=== PATIENT | female | born 1940 | race Caucasian/White ===

== ENCOUNTER 2018-12-03 07:31 | Inpatient (IN) | payer MEDICARE, OTHER, SELFPAY ==
[2018-11-20 08:54] VITALS: BMI 35.4
[2018-12-03] VITALS (18 sets, daily range): BP systolic 138–173; BP diastolic 69–119; PULSE 69–106; RESP 10–23; TEMP 36–37.3; O2SAT 91–98; BMI 35.4
--- NOTE | 2018-12-03 | DI.RAD.S_ITS ---
PROCEDURE: XR LUMBAR SPINE 2-3V INDICATIONS: L4-5 TLIF TECHNIQUE: 2 operative views of the lumbar spine were acquired. COMPARISON: None. FINDINGS: Operative images demonstrate posterior lateral natasha and pedicles are fixation at L4-L5 with interbody disc material placement. There is no radiographic evidence of complications. IMPRESSION: Operative imaging provided for lumbar fusion Dictated by: Robbie Buitrago M.D. on 12/03/2018 at 12:22 Approved by: Robbie Buitrago M.D. on 12/03/2018 at 12:23
[2018-12-03] MEDS: LACTATED RINGERS 1,000 ML 42 ML IV ×2 (07:00→12:35)
--- NOTE | 2018-12-03 08:45 | PM.PREOP ---
Pre-operative Note Interval Note History & Physical reviewed/Exam performed by Physician: Yes Changes to H&P: No
[2018-12-03] MEDS: CLINDAMYCIN 900 MG/50 ML PIGGYBACK 50 MG IV ×2 (09:34→18:06)
--- NOTE | 2018-12-03 10:09 | SUR.OPER ---
Prone on spine table, head in foam head support, padded chest and pelvic supports, gel pad at knees, lower legs supported by pillows; nipples, genitalia and toes free of pressure, arms secured on foam padded arm boards at <90 degrees abduction. Tape over blanket at thigh secured to table.
[2018-12-03] MEDS: BUPIVACAINE 0.25% W/ EPI 30 ML VIAL INJ (10:30)
[2018-12-03] MEDS: BUPIVACAINE LIPOSOME 266 MG/20 ML VIAL INJ (10:30)
--- NOTE | 2018-12-03 12:32 | P.OP_ITS ---
Operative Date/Time/Diagnoses Date of procedure: 12/03/18 Time of procedure: 09:32 Pre-op diagnosis: 1. L4-5 spondylolisthesis 2. L4-5 spinal stenosis 3. L5-S1 spinal stenosis Post-op diagnosis: same Procedure & Clinicians Procedure: 1. L4-5 Postero-lateral and posterior interbody fusion 2. L4-5 interbody cage placement. 3. L4-5 decompressive laminectomy with bilateral facetecomies 4. L4-5 Posterior non-segmental instrumentation 5. L5-S1 hemilaminnectomy 6. [place] of bone marrow from iliac crest 7. Utilization of microsurgical technique and operating microscope Same procedure as scheduled: Yes Indications: Patient has been having chronic back pain and worsening lumbar radiculopathy. Patient failed multiple conservative management with worsening pain weakness and numbness in her lower extremity. Patient has been having difficulty performing activity of daily living. After discussing risks benefits of treatment options, patient elected proceed with surgery. Surgeon: Liana Caballero Adhesive Sprayer: Colleen Degroot Click Yes if Unassisted: No Anesthesia Type: General Operative Notes Closure Type: primary Specimen(s): none sent Prosthetic devices, grafts, tissues, transplants, or devices: GLobus revolve, Rise cages Applied: catheter Estimated Blood Loss (mL): 50 Blood products transfused: none Procedure in detail: Patient was seen in the preoperative area. Risks and benefits of the surgery was discussed with the patient. Informed consent was obtained from the patient and placed in the chart. Surgical site was marked. Patient was taken to the operative room. General anesthesia was administered. Prophylactic antibiotic was given to the patient less than 30 min before the incision was made. Patient was placed into a prone position on the Augusto table. Patient's back was then prepped and draped in the sterile fashion. Time- out was performed at this time. Using AP and lateral C-arm imaging the interval between L4-5 L5-S1 was identified and marked on patient's back. A 2 inch incision 2 in from midline was made on the right side first. The fascia was incised in line with skin incision. Globus MARS retractors was placed inside the incision and docked onto the L4 lamina. Using microsurgical technique and operating microscope, a L4 laminectomy and L4-5 facetectomy was performed using a Kerrison rongeur. The disc space at L4-5 was identified. And a total diskectomy was performed at L4-5 level. The endplates were decorticated using a rasp and shaver. The total diskectomy and decortication was performed at L4-5 level in order to to accomplish a L4-5 fusion. The local bone from the laminectomy and facetectomy was saved for local bone grafting. After the total diskectomy and decortication was completed, Bio4 bone graft material was combined with local bone that was harvested earlier. At this time, a separate skin is incision was made over the iliac crest. A Jamshidi needle was inserted into the iliac crest through a separate skin incision. 5 cc of bone marrow aspiration was obtained through the separate skin incision using a Jamshidi needle from the iliac crest. The bone marrow aspiration was combined with local bone and the Bio4 bone grafting material. The bone grafting material was placed into the L4-5 interbody space along with a expandable cage. The cage was expanded to its maximum height using the torque limiting screwdriver. At this time the MARS retractor was redirected over the L5 lamina. Using microsurgical technique and operating microscope, a L5-S1 heminectomy was performed using the Kerrison rongeur. The ligamentum flavum was also resected at the side of the hemilaminectomy for further decompression of the epidural space. At this time a mirror image incision was made on the left side. The fascia was incised in line with the skin incision. Globus MARS retractor was inserted and docked onto the L4-5 posterolateral gutter. Using the power drill, posterior- lateral decortication was performed at L4-5 level until bleeding cortical bone was identified. The remaining bone grafting material was placed into the L4-5 posterior lateral gutter he order to accomplish posterolateral fusion at the L4- 5 level. Using the double C-arm technique, pedicle screws were placed into the L4 and L5 pedicles bilaterally. This was done by placing the Jamshidi needle into the pedicles, then placing the guidewires over the Jamshidi needle, and finally placing the cannulated screws over the guidewires bilaterally. After the pedicle screws were placed, 2 titanium rods was locked into the heads of the pedicle screws using locking caps and torque limiting screwdriver. After all the hardware was placed, and confirmed with AP and lateral C-arm imaging, the wound was then irrigated with sterile normal saline and packed with Ray-Helio gauze for 3 min to accomplish hemostasis. After the gauze was removed the deep fascia was closed with #1 Vicryl suture. The subcutaneous layer was closed with 2-0 Vicryl. The skin was closed with skin adama. Patient tolerated the procedure well. There were no complications. Complications: none Post-operative Condition: stable Disposition: PACU Plan for aftercare: Admit to inpatient hospital
[2018-12-03] MEDS: fentaNYL 100 MCG/2 ML INJ 50 MCG IV ×2 (12:39→12:44)
[2018-12-03] MEDS: LORazepam 2 MG/ML INJ 0.25 MG IV ×2 (12:42→13:07)
[2018-12-03] MEDS: HYDROMORPHONE 2 MG INJ 0.5 MG IV ×3 (12:49→13:37)
[2018-12-03] MEDS: hydrOXYzine pamoate 25 MG CAPSULE PO (13:12)
--- NOTE | 2018-12-03 13:51 | SUR.PHASEI ---
PACU Phase 1 note: at 1228 patient arrived to PACU awake, drowsy and tearful. Pain level 9/10 on arrival. Medicated per post op orders. Pain level stable at 7/10. Awake, calm and relaxed. Repositioned for comfort. Voided on bedpan. Tolerating PO without any nausea. VSS, O2 with 2L/[employer]. Stable for transfer to IP room. Bedside report will be given. Kade Del Valle
--- NOTE | 2018-12-03 14:59 | PC.NURSE ---
1430-Patient arrives from w/transporter driver, opens eyes spontaneous, CMS intact, peripheral pulses present, skin warm and dry. no drainage noted from surgical sites-dressing CDI. all belongings in patient's room.
[2018-12-03] MEDS: SODIUM CHLORIDE 0.9% 1,000 ML 100 ML IV (15:45)
[2018-12-03] MEDS: HYDROMORPHONE 1 MG INJ 0.5 MG IV (15:56)
[2018-12-03] MEDS: HYDROCODONE/ACET 5/325 TABLET 2 TAB PO ×2 (17:35→21:47)
[2018-12-03] MEDS: DOCUSATE 100 MG CAPSULE PO (21:47)
[2018-12-03] MEDS: PANTOPRAZOLE 40 MG TABLET PO (21:47)
[2018-12-03] MEDS: buPROPion 75 MG TABLET PO (22:04)
--- NOTE | 2018-12-03 23:26 | PC.NURSE ---
A&OX3. 98% 2L. desats to 88 at sleep. baseline R. facial droop. pain controlled with norco 2 tabs. pt rates her pain 09/24. not OOB. q2turn. 1pa bedpan. SCDs on. call light in reach. bed alarm active.
[2018-12-04 00:05] VITALS: BP 127/79; PULSE 91; RESP 16; TEMP 36.9; O2SAT 91
[2018-12-04] MEDS: SODIUM CHLORIDE 0.9% 1,000 ML 100 ML IV (00:27)
[2018-12-04] MEDS: HYDROCODONE/ACET 5/325 TABLET 2 TAB PO ×5 (02:29→20:30)
[2018-12-04] MEDS: CLINDAMYCIN 900 MG/50 ML PIGGYBACK 50 MG IV (02:30)
[2018-12-04 04:56] VITALS: BP 135/71; PULSE 83; RESP 16; TEMP 36.9; O2SAT 96
--- NOTE | 2018-12-04 05:11 | PC.NURSE ---
A&O x4. Pt not OOB overnight, using call light for bedpan, Good amount UOP. L hand PIV with NS @100c/hr, DC IVG if tolerating PO this morning. Sipping water at bedside. Denies nausea. Pt with hx of brain surgery on 2002, right side facial droop and right side hearing loss. Coversite dressing x2 to mid back, CD&I. Pt rates pain 2-5 overnight, PRN [place] given per order. Pt states numbness at pre surgery baseline in right leg that goes from inner ankle to knee, otherwise CMS intact. SCDs on.
[2018-12-04 06:31] LABS: Hematocrit 33.6 % (36-46); Hemoglobin 11.2 g/dL (12.0-16.0)
[2018-12-04 08:38] VITALS: BP 138/69; PULSE 76; RESP 17; TEMP 36.8; O2SAT 98
[2018-12-04] MEDS: DOCUSATE 100 MG CAPSULE PO ×2 (09:55→20:31)
[2018-12-04] MEDS: PANTOPRAZOLE 40 MG TABLET PO ×2 (09:55→20:31)
[2018-12-04] MEDS: hydroCHLOROthiazide 12.5 MG CAPSULE PO (09:55)
[2018-12-04] MEDS: LISINOPRIL 10 MG TABLET PO (09:55)
[2018-12-04] MEDS: buPROPion 75 MG TABLET PO ×2 (09:58→20:31)
[2018-12-04] MEDS: hydrOXYzine pamoate 25 MG CAPSULE PO ×2 (10:07→20:30)
--- NOTE | 2018-12-04 10:50 | P.PN_ITS ---
Subjective Subjective Date Patient Seen: 12/04/18 Time Patient Seen: 10:50 Interval history: Hospital day 2, postop day 1 following L4-5 TLIF, cage, posterior screw fixation; L5-S1 hemilaminectomy by Dr. Caballero. She is remained stable postoperatively. She has not been out of bed yet. No PT yet. Taking [place] 5/325 mg 2 tabs q.4h. Patient anticipated due to 3 night stay in the hospital. She does have some friends that will be with her at home. She does complain of pain to her left lower back. No radicular leg pain or numbness. Exam Vital Signs (past 8 hours): - 12/04/18 04:56 12/04/18 08:38 Temperature 98.5 F 98.2 F Pulse Rate 83 76 Respiratory Rate 16 17 Blood Pressure 135/71 138/69 Pulse Oximetry 96 98 Oxygen Delivery Method Nasal Cannula Oxygen Flow Rate 2 Narrative Exam Narrative: Alert, oriented with complaint of pain to her left lower back. Back. Dressing to lumbar area is dry without drainage or inflammation. Legs. No calf pain or swelling. Pulses symmetrical. Good sensation to both lower legs. Good strength on foot dorsiflexion plantar flexion bilateral. Objective Labs Result Diagrams: 12/04/18 06:05 Labs: Laboratory Results - last 24 hr 12/04/18 06:05 Hgb 11.2 L Hct 33.6 L Assessment & Plan Post-op Postoperative Procedures: Procedures Operation Date: 12/03/18 12:15 Actual Procedures Side Surgeon p L5-S1 hemilaminectomy, L4-5 TLIF w/ posterior instrumentaion Liana Caballero MD Plan: Patient will work with PT today. Observe for improvement in pain and function. Anticipate discharge home in the next 1-2 days if stable.
--- NOTE | 2018-12-04 10:55 | PT.IIE ---
Current Diagnoses Spondylolisthesis, lumbar region (12/03/18) Other spondylosis with radiculopathy, lumbosacral region (12/03/18) Spinal stenosis, lumbar region with neurogenic claudication (12/03/18) Surgery Performed Operation Date: 12/03/18 12:15 Actual Procedures p L5-S1 hemilaminectomy, L4-5 TLIF w/ posterior instrumentromi - Liana Caballero MD Surgical History (Last Updated 11/20/18 @ 12:11 by Jackie Sanders RN) History of colon resection (Acute) Hx of arthroscopy of right knee (Acute ~2004) Hx of bariatric surgery (Acute ~1995) Hx of cardiac cath (Acute ~2004) Hx of cholecystectomy (Acute) Hx of dilation and curettage (Acute) Hx of tonsillectomy (Acute) Medical History (Last Updated 11/20/18 @ 12:11 by Jackie Sanders RN) Acid reflux (Acute) Bilateral leg cramps (Acute) Bradycardia (Acute) Chest pain (Acute) Colon cancer (Acute) Depression (Acute) Former smoker (Acute) HTN (hypertension) (Acute) Imbalance (Acute) Insomnia (Acute) Migraines (Acute) Numbness and tingling of both legs (Acute) ERIN on CPAP (Acute) Osteoarthritis (Acute) Right acoustic neuroma (Acute) RLS (restless legs syndrome) (Acute) Sciatica (Acute) 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) (Acute ~2006) Physical Therapy Inpatient Evaluation/Re-Eval M1 PT/OT-IP Prior Functional Status Start: 12/04/18 13:20 Freq: NEEDED Status: Active Protocol: Document 12/04/18 10:55 AB (Rec: 12/04/18 13:40 AB [id number]) Medical Review Prior Functional Status Medical History Reviewed Yes Communication able to make needs known Mobility and Gait pt stated that she is modified independent with all mobilities and ambulation without AD but occasionally uses a 4WW depending on back pain Social History Household Members other Living Arrangements Apartment/Condo Number of Floors (Floors) One Floor Number of Stairs To Enter/Railing? no steps to enter Home Environment High Toilet,Walk in Shower, Built-In Shower Seat Home Equipment Front Wheel Walker,Four Wheel Walker,Grab Bars In Shower Additional Social History Comment has trekking poles pt stated that she also has a recliner that she usually take a nap on also stated that a friend will stay with her for 2-3 days to assist her. M2 PT-IP Current Condition Start: 12/04/18 13:20 Freq: NEEDED Status: Active Protocol: Document 12/04/18 10:55 AB (Rec: 12/04/18 13:40 AB [id number]) Physical Therapy Current Condition Current Condition Evaluation Date 12/04/18 Treatment Diagnosis s/p L4-5 fusion/lami, L5S1 hemilami; difficulty in walking Onset Date 12/03/18 Precautions Lumbar Precautions Log Roll,No Twisting,Limit Bending,Lifting Restriction of 10 lbs,Gait Belt above Incisional Area M3 PT-IP Subjective Start: 12/04/18 13:20 Freq: NEEDED Status: Active Protocol: Document 12/04/18 10:55 AB (Rec: 12/04/18 13:40 AB [id number]) Subjective Physical Therapy Visit Type Type Initial Evaluation Visit Start Time 10:55 Visit Stop Time 11:48 Total Visit Minutes 53 Number of SPINNING MULE OPERATOR Visits 0 Physical Therapy Visit Comments Patient Comments pt agreeable to do PT Therapy Pain Assessment Pain When Pain Assessed At Rest Pain Present Pain Present Pain Reported Location back Intensity 8 Scale Used Numeric (1 - 10) Pain Management Techniques Apply Cold,Timing of Activity with Medications M4 PT-IP Mobility and Gait Start: 12/04/18 13:20 Freq: NEEDED Status: Active Protocol: Document 12/04/18 10:55 AB (Rec: 12/04/18 13:40 AB [id number]) PT-Bed Mobility Assessment Rolling Type of Rolling Log Rolling Level of Assist Minimal Assistance Supine to Sit Supine to Sit Minimal Assistance,1 Person Assistance Sit to Supine Sit to Supine Minimal Assistance,1 Person Assistance PT-Transfer Assessment Sit to and From Stand Sit to and from Stand Minimal Assistance,1 Person Assistance,Use of Upper Extremities Equipment Transfer Assistive Device Gait Belt,Front Wheeled Walker Orthotic/Prosthetic Devices or Brace: No Transfers Transfer Destination Chair Transfer Technique pt ambulated using FWW Transfer Ability Level of Assist Minimal Assistance,1 Person Assistance,Use of Upper Extremities Comments Mobility Comments pt educated on back precautions and log roll bed mobility. pt requesting to use the toilet but has to urgently urinate and assisted with bed pain. pt completed log roll to the R min A and assisted with bed pain placement and hygiene care. completed supine to sit min A and cues. BP sitting on EOB: 129/67. pt was able to sit on EOB SBA. completed sit to stand min A and cues. ambulated in room ~ 10 ft min A using FWW. (+) body shaking and pt stated that she has that due to stress. pt completed chair to w/c transfer using FWW min A and cues. positioned pt on chair. call light and table placed within reach. BP sitting on w /c: 130/59. Gait Assessment Gait Gait Assistance Required: Minimum Assistance Distance (Feet) 10 Able to Maintain Weight Bearing Status Yes During Gait Assistive Devices Assistive Device Gait Belt,Front Wheeled Walker Orthotic/Prosthetic Devices or Brace: No Gait Deviations General Gait Pattern Antalgic,Decreased Stride Length,Decreased Feet Clearance,Step-to Gait Factors Limiting Gait Function Factors Limiting Gait Function Decreased Activity Tolerance, Decreased Sensation,Decreased Strength,Limited Range of Motion,Pain,Poor Balance,Poor Safety Awareness Comments Gait Comments pt presents with unsteady gait requiring min A for safety. PT-Balance Assessment Sitting Balance and Reactions Static Sitting Balance Ability Good Dynamic Sitting Balance Ability Good Standing Balance and Reactions Static Standing Balance Ability Fair Dynamic Standing Balance Ability Fair Device Used FWW M5 PT-IP Objective Assessments Start: 12/04/18 13:20 Freq: NEEDED Status: Active Protocol: Document 12/04/18 10:55 AB (Rec: 12/04/18 13:40 AB [id number]) Orientation Orientation/Cognition Level of Alertness Alert Orientation Name,Age,Place,Situation Language Function Ability Hard of Hearing Safety Awareness Decreased Safety Awareness Gross Range of Motion Lower Extremity ROM Assessment Within Functional Limits Strength Lower Extremity Strength Assessment Bilaterally Impaired Hip 3+/5 Knee 3+/5 Coordination Assessment Gross Coordination Gross Coordination WNL Sensation Assessment Sensation Gross Sensation Right LE Impaired,Left LE Impaired Light Touch Impaired Proprioception (Position) Impaired Sensation Description Numbness Comments Sensation Comments RLE stated ~ 75% sensation LLE ~ 85% sensation Muscle Tone Muscle Tone WNL Yes M6 PT-IP Treatment Start: 12/04/18 13:20 Freq: NEEDED Status: Active Protocol: Document 12/04/18 10:55 AB (Rec: 12/04/18 13:40 AB [id number]) Physical Therapy Treatment Education Education Provided Precautions,Weight Bearing Status,Post-Op Packet,Safety M7 PT-IP Assessment and Plan Start: 12/04/18 13:20 Freq: NEEDED Status: Active Protocol: Document 12/04/18 10:55 AB (Rec: 12/04/18 13:40 AB [id number]) PT Summary Assessment and Plan Potential Rehabilitation Potential Good Status of Condition at Evaluation Evolving Summary Impairments Pain,ROM,Strength,Balance, Coordination,Sensation,Tone, Cognition,Bed Mobility, Transfers,Gait,Activity Tolerance Assessment Summary pt requiring min A with mobility but presents with decrease activity tolerance affecting function. d/c plan depending on progress and will conduct caregiver training when appropriate. will continue assessing progress to determine safe d/c plan. Goals Bed Mobility Goal Independent Transfer Goal Independent,Front Wheeled Walker,Four Wheeled Walker Gait Goal Independent,Front Wheel Walker ,Four Wheel Walker Gait Distance 200 Days to Meet Goals 5 Frequency of Treatment Frequency Of Treatment Twice a Day Treatment Plan Physical Therapy Treatment Plan Bed Mobility Training,Transfer Training,Gait Training, Therapeutic Exercise,Balance Retraining,Post Op Education, Discharge Planning,Hot or Cold Pack,Neuromuscular Re-ed, Coordination Retraining,Manual Therapy Other Recommendations and Next Treatment ambulation Focus Recommendations To Nursing Amount of Assist Needed 1 Person Assist Discharge Recommendations PT Discharge Recommendations Home with Assistance,Home Health,SNF Rehab
--- NOTE | 2018-12-04 11:57 | PC.NURSE ---
Day Shift- PT has urinary urgency, voiding qs on bed valle with 1 person assist. Reposition in bed, pt favors turning to right side. Reports lower back pain 5-6/10, PRN Vistaril given at 1005 with good effect, pt ambulating with PT and stated she was not able to turn well to the left and after receiving Vistaril, she was able to exit the left side of the bed. PRN [place] given for 7/10 pain with ambulating with PT. Given at 1125. Now currently sitting up in wheelchair with wheels locked, no recliner chairs available at this time. Pt states it feels better to be sitting up like this. Call light with in reach. Lower back overlapping cover site dressings intact with small amount of sero-sang drainage. CMS+, pt states she has chronic numbness from her ankle to her knee, the right is greater than the left. Pain is more to the left than the right.
[2018-12-04 12:40] VITALS: BP 115/56; PULSE 75; RESP 18; TEMP 36.7; O2SAT 96
--- NOTE | 2018-12-04 13:48 | OT.IP.EVAL ---
Current Diagnoses Spondylolisthesis, lumbar region (12/03/18) Other spondylosis with radiculopathy, lumbosacral region (12/03/18) Spinal stenosis, lumbar region with neurogenic claudication (12/03/18) Surgery Performed Operation Date: 12/03/18 12:15 Actual Procedures p L5-S1 hemilaminectomy, L4-5 TLIF w/ posterior instrumentromi - Liana Caballero MD Past Medical History (Last Updated 11/20/18 @ 12:11 by Jackie Sanders RN) Acid reflux (Acute) Bilateral leg cramps (Acute) Bradycardia (Acute) Chest pain (Acute) Colon cancer (Acute) Depression (Acute) Former smoker (Acute) HTN (hypertension) (Acute) Imbalance (Acute) Insomnia (Acute) Migraines (Acute) Numbness and tingling of both legs (Acute) ERIN on CPAP (Acute) Osteoarthritis (Acute) Right acoustic neuroma (Acute) RLS (restless legs syndrome) (Acute) Sciatica (Acute) 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) (Acute ~2006) Surgical History (Last Updated 11/20/18 @ 12:11 by Jackie Sanders RN) History of colon resection (Acute) Hx of arthroscopy of right knee (Acute ~2004) Hx of bariatric surgery (Acute ~1995) Hx of cardiac cath (Acute ~2004) Hx of cholecystectomy (Acute) Hx of dilation and curettage (Acute) Hx of tonsillectomy (Acute) Occupational Therapy Inpatient Evaluation/Re-Eval M1 PT/OT-IP Prior Functional Status Start: 12/04/18 13:20 Freq: NEEDED Status: Active Protocol: Document 12/04/18 13:48 DUNIA (Rec: 12/04/18 14:17 DUNIA [id number]) Medical Review Prior Functional Status Medical History Reviewed Yes Diet/Fluid Consistency Regular Communication WNL Mobility and Gait Pt stated that she normally ambulates without AD but occasionally uses a 4WW if LBP increases. Activities of Daily Living and IADL's Pt states she is independent with all self care, IADLS including cooking, shopping, cleaning, managing medications and finances. Prior Functional Level (Other details) Pt has a cat and has arranged for friends who live in same apt complex to assist with cat care. Social History Household Members other Living Arrangements Apartment/Condo Number of Floors (Floors) One Floor Number of Stairs To Enter/Railing? no steps to enter Home Environment Standard Height Toilet,Walk in Shower,Built-In Shower Seat Home Equipment Front Wheel Walker,Four Wheel Walker,Long Handled Sponge, Lan Manager,Grab Bars In Shower Employment Status Retired Additional Social History Comment has Drug Response Dx Pt stated she has several friends who will stay with her for 2-3 days at a time to assist her as needed. M2 OT-IP Current Condition Start: 12/04/18 13:13 Freq: Status: Active Protocol: Document 12/04/18 13:48 PJM (Rec: 12/04/18 14:17 [facility] [id number]) Occupational Therapy Current Condition Current Condition Evaluation Date 12/04/18 Treatment Diagnosis decreased self care, mobility s/p L5-S-1 TLIF Post Operative Precautions Lumbar Precautions Log Roll,No Twisting,Limit Bending,Lifting Restriction of 10 lbs,Gait Belt above Incisional Area M3 OT- IP Subjective and Pain Start: 12/04/18 13:13 Freq: Status: Active Protocol: Document 12/04/18 13:48 PJM (Rec: 12/04/18 14:17 [facility] [id number]) OT- Subjective Occupational Therapy Visit Type Type Initial Evaluation Visit Start Time 13:15 Visit Stop Time 13:48 Total Visit Minutes 33 Occupational Therapy Visit Comments Patient Comments I bought a lot of groceries and easy to fix meals before surgery. Patient/Caregiver Goals to go home, have less back pain during daily activities OT Pain Assessment Pain When Pain Assessed After Treatment Pain Present Pain Present Pain Reported Location back Intensity 5 Scale Used Numeric (1 - 10) Description Aching,Acute Pain Behaviors Facial Grimacing,Guarding M4 OT- IP ADL's Start: 12/04/18 13:13 Freq: Status: Active Protocol: Document 12/04/18 13:48 PJM (Rec: 12/04/18 14:17 [facility] [id number]) OT [id number] General Evaluation Self-Feeding Ability Independent OT ADL-Grooming General Evaluation Grooming Ability Standby Assistance Areas Needing Assistance Retrieving/Set-up of Grooming Items,Combing/Brushing Hair, Face Washing Comments OT Grooming Comments after set up in bed or chair OT ADL-Oral Care General Eval Oral Care Ability Standby Assistance Areas of Assistance Retrieving/Set-Up of Items Devices Oral Care Devices Toothbrush Comments Oral Care Comments after set up in chair OT ADL-Dressing General Eval Upper Body Dressing Ability Standby Assistance Lower Body Dressing Ability Maximum Assistance Assistive Devices Dressing Assistive Devices Long Handled Shoe Horn,Lan Manager ,Sock Aid Comments OT Dressing Comments Began education re: adapted ADL techniques for lower body dressing with wafer slicer, sock aid and long shoe horn. Pt has wafer slicer. Long shoe horn and sock aid provided. OT ADL-Toileting General Evaluation Toileting Ability Standby Assistance Areas Needing Assistance Manage Clothing,Perform Perineal Hygiene Comments OT Toileting Comments pt states she has urinary incontinence OT ADL-Bathing Comments OT Bathing Comments to be assessed as mobility improves M5 OT- IP IADL's Start: 12/04/18 13:13 Freq: Status: Active Protocol: Document 12/04/18 13:48 PJChris (Rec: 12/04/18 14:17 [facility] [id number]) OT-Instrumental Activities of Daily Living Deficits IADL Deficits Identified Deficits Home Safety Awareness Awareness of Need for Assistance at Home Good Awareness Ability to Problem Solve Emergency Able to Problem Solve Situations Medication Management Medication Management No Deficits Identified Money Management Money Management No Deficits Identified Meal Preparation Meal Preparation Comments pt prepared meals ahead of time and friends will also assist with meals per pt Refractory Worker Refractory Worker Caregiver Provides Assist Refractory Worker Comments friends to assist PRN until pt able Driving Driving Caregiver Provides Assist Driving Comments friends to assist until pt able M6 OT- IP Functional Cognition Start: 12/04/18 13:13 Freq: Status: Active Protocol: Document 12/04/18 13:48 DUNIA (Rec: 12/04/18 14:17 [facility] [id number]) Cognitive Factors Limiting Selfcare Function Cognitive Ability Level of Alertness Alert Patient Orientation Name,Age,Birthday,Month,Date, Year,Day of Week,Place, Situation Attention Span Ability Capable of Focused Attention, Capable of Sustained Attention Ability to Follow Commands Able to Follow One Step Commands Memory Description No Deficits Noted Safety Awareness No Deficits Noted Cognitive Comments Cognitive Assessment Comments Cognition appears WFL. Pt verbalizes 3/3 lumbar precautions and asking appropriate questions about adapted ADL techniques. 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 M7 OT- IP Mobility and Balance Start: 12/04/18 13:13 Freq: Status: Active Protocol: Document 12/04/18 13:48 PJM (Rec: 12/04/18 14:17 PJM [id number]) OT-Transfer Assessment Comments Mobility Comments see P.T. notes, pt states she just got back to bed after lunch OT- Gait Assessment Comments Gait Ability Comments see P.T. notes OT- Balance Assessment Comments Other Balance Tests/Deviations/Treatment see P.T. notes : M8 OT- IP Objective Assessments Start: 12/04/18 13:13 Freq: Status: Active Protocol: Document 12/04/18 13:48 PJM (Rec: 12/04/18 14:17 PJM [id number]) OT Gross Range of Motion Upper Extremity Range of Motion Assessment Within Functional Limits OT Strength Upper Extremity Strength Assessment Within Functional Limits Hand Section Gang Worker Strength Hand Dominance Right OT- Coordination Assessment Comments Coordination Comments BUE WFL OT-Muscle Tone Assessment Muscle Tone WNL Yes OT Sensation Assessment Comments Summary Comments Pt denies deficits in BUE's Edema Edema Absent M9 OT- IP Assessment and Plan Start: 12/04/18 13:13 Freq: Status: Active Protocol: Document 12/04/18 13:48 PJM (Rec: 12/04/18 14:17 PJM [email or web address]) OT Summary Assessment and Plan Potential Rehabilitation Potential Good Analytic Complexity at Evaluation Low Summary OT Impairments Pain,Functional Mobility, Grooming,Dressing,Toileting, Bathing,Toilet Transfers, Shower Transfers Assessment Summary Low complexity OT assessment completed on this 78 yr old woman admitted for L5-S1 hemilami and L4-5 TLIF. Began education re: lumbar precautions, body mechanics, adapted ADL techniques, equipt options for lower body dressing, optimal chair selection. Pt currently has mild performance deficits in functional mobility, transfers , standing grooming, lower body dressing, bathing and toileting due to post op pain. Anticipate pt will improve and be able to return home with assist from multiple friends in her apt complex. Pt will benefit from OT services here to address the goals below. Goals Grooming Goal Independent Dressing Goal Independent,Long Handled Shoe Horn,Lan Manager,Sock Aid Toileting Goal Independent Bathing Goal Standby Assistance,Grab Bars, Hand Held Shower Sprayer Toilet Transfer Goal Independent Shower Transfer Goal Standby Assistance,Walk-in Shower,Shower Chair,Grab Bars OT-Other Goals Grooming to be done standing at sink with good body mechanics. Days to Meet Goals 2 Frequency of Treatment Frequency Of Treatment Once a Day Treatment Plan OT Treatment Plan ADL Training,Functional Mobility,Patient/Family Education,Discharge Planning Other Treatment Recommendations and Next grooming at sink, LB dressing, Treatment Focus shower prior to d/c Discharge Recommendations OT Discharge Recommendations Home with Assistance from friends, HH Home Equipment Needs none
--- NOTE | 2018-12-04 14:19 | PT.IPTN ---
Current Diagnoses Spondylolisthesis, lumbar region (12/03/18) Other spondylosis with radiculopathy, lumbosacral region (12/03/18) Spinal stenosis, lumbar region with neurogenic claudication (12/03/18) Surgery Performed Operation Date: 12/03/18 12:15 Actual Procedures p L5-S1 hemilaminectomy, L4-5 TLIF w/ posterior instrumentaihelio - Liana Caballero MD Physical Therapy Treatment Note M2 PT-IP Current Condition Start: 12/04/18 13:20 Freq: NEEDED Status: Active Protocol: Document 12/04/18 10:55 AB (Rec: 12/04/18 13:40 AB [id number]) Physical Therapy Current Condition Current Condition Evaluation Date 12/04/18 Treatment Diagnosis s/p L4-5 fusion/lami, L5S1 hemilami; difficulty in walking Onset Date 12/03/18 Precautions Lumbar Precautions Log Roll,No Twisting,Limit Bending,Lifting Restriction of 10 lbs,Gait Belt above Incisional Area M3 PT-IP Subjective Start: 12/04/18 13:20 Freq: NEEDED Status: Active Protocol: Document 12/04/18 14:09 GGD (Rec: 12/04/18 14:17 GGD [email or web address]) Subjective Physical Therapy Visit Type Type Treatment Note Visit Start Time 13:40 Visit Stop Time 14:05 Total Visit Minutes 25 Number of JEWELRY SALES Visits 1 Physical Therapy Visit Comments Patient Comments Pt would like to walk. Therapy Pain Assessment Pain When Pain Assessed At Rest Pain Present Pain Present Pain Reported Location back Intensity 6 Scale Used Numeric (1 - 10) Pain Management Techniques Apply Cold,Timing of Activity with Medications M4 PT-IP Mobility and Gait Start: 12/04/18 13:20 Freq: NEEDED Status: Active Protocol: Document 12/04/18 14:09 GGD (Rec: 12/04/18 14:17 GGD [email or web address]) PT-Bed Mobility Assessment Rolling Type of Rolling Log Rolling,Roll to Left Level of Assist Contact Guard Assistance Supine to Sit Supine to Sit Contact Guard Assistance,1 Person Assistance Sit to Supine Sit to Supine Minimal Assistance,1 Person Assistance Scooting Scooting to Edge of Bed Standby Assistance PT-Transfer Assessment Sit to and From Stand Sit to and from Stand Contact Guard Assistance,1 Person Assistance,Use of Upper Extremities Equipment Transfer Assistive Device Gait Belt,4 Wheeled Walker Orthotic/Prosthetic Devices or Brace: No Transfers Transfer Destination Toilet Transfer Ability Level of Assist Minimal Assistance,1 Person Assistance,Use of Upper Extremities Comments Mobility Comments supine <> sit x 2. Gait Assessment Gait Gait Assistance Required: Standby Assistance,Contact Guard Assist,1 Person Assist Distance (Feet) 225 Able to Maintain Weight Bearing Status Yes During Gait Assistive Devices Assistive Device Gait Belt,Front Wheeled Walker Orthotic/Prosthetic Devices or Brace: No Gait Deviations General Gait Pattern Antalgic,Decreased Stride Length,Decreased Feet Clearance,Step-to Gait Factors Limiting Gait Function Factors Limiting Gait Function Decreased Activity Tolerance, Decreased Sensation,Decreased Strength,Limited Range of Motion,Pain,Poor Balance,Poor Safety Awareness Comments Gait Comments Pt in bed with all needs and alarm on. M5 PT-IP Objective Assessments Start: 12/04/18 13:20 Freq: NEEDED Status: Active Protocol: Document 12/04/18 10:55 AB (Rec: 12/04/18 13:40 AB [id number]) Orientation Orientation/Cognition Level of Alertness Alert Orientation Name,Age,Place,Situation Language Function Ability Hard of Hearing Safety Awareness Decreased Safety Awareness Gross Range of Motion Lower Extremity ROM Assessment Within Functional Limits Strength Lower Extremity Strength Assessment Bilaterally Impaired Hip 3+/5 Knee 3+/5 Coordination Assessment Gross Coordination Gross Coordination WNL Sensation Assessment Sensation Gross Sensation Right LE Impaired,Left LE Impaired Light Touch Impaired Proprioception (Position) Impaired Sensation Description Numbness Comments Sensation Comments RLE stated ~ 75% sensation LLE ~ 85% sensation Muscle Tone Muscle Tone WNL Yes M6 PT-IP Treatment Start: 12/04/18 13:20 Freq: NEEDED Status: Active Protocol: Document 12/04/18 14:09 GGD (Rec: 12/04/18 14:17 GGD [email or web address]) Physical Therapy Treatment Education Education Provided Precautions,Safety M7 PT-IP Assessment and Plan Start: 12/04/18 13:20 Freq: NEEDED Status: Active Protocol: Document 12/04/18 14:09 GGD (Rec: 12/04/18 14:17 GGD [email or web address]) PT Summary Assessment and Plan Summary Assessment Summary Pt improving with mobility. She was able to progress her gait distance. She did need min A with sit to supine with LE. Pt will need to improve in bed mobility if D/C home. Frequency of Treatment Frequency Of Treatment Twice a Day Treatment Plan Physical Therapy Treatment Plan Bed Mobility Training,Transfer Training,Gait Training, Therapeutic Exercise,Balance Retraining,Post Op Education, Discharge Planning,Hot or Cold Pack,Neuromuscular Re-ed, Coordination Retraining,Manual Therapy Recommendations To Nursing Amount of Assist Needed 1 Person Assist Discharge Recommendations PT Discharge Recommendations Home with Assistance,SNF Rehab
[2018-12-04 15:40] VITALS: BP 150/73; PULSE 80; RESP 18; TEMP 36.8; O2SAT 95
--- NOTE | 2018-12-04 16:25 | CM.IDA ---
Discharge Planning/Care Management CM Discharge Assessment Start: 12/04/18 16:19 Freq: Status: Active Protocol: Document 12/04/18 16:19 RODRIGO (Rec: 12/04/18 16:25 RODRIGO [id number]) Discharge Planning Assessment Assigned Senior Cobol Developer ANGELO Dobbs DPOA/Assigned Designee Name Cordelia: [phone] Mattie: Contact Information Advance Directives? Yes Advance Directives on File No History Provided By Patient Prior Living Arrangements Apartment/Condo Household Members other Independent with ADL's Yes Is patient alert and oriented? Yes Barriers to Discharge Yes Comment POD#1 from spinal surgery w/ Dr Caballero. PT recommending home w/ assist vs SNF, pt plans to go home w / assist from a friend that is going to stay w/ her for a few days. Other supports available? Pt is mod. indp at baseline and uses a walker d/t back pain. Further assessment by this FERMENTATION ENGINEER Saturday. Transportation Arrangement Friend Additional Comment Further assessment of DC needs required Review Status In Process
[2018-12-04 19:40] VITALS: BP 136/57; PULSE 72; RESP 17; TEMP 37.6; O2SAT 97
[2018-12-04] MEDS: SODIUM CHLORIDE 0.9% FLUSH 10 ML IV (20:31)
[2018-12-05] VITALS (7 sets, daily range): BP systolic 104–142; BP diastolic 48–70; PULSE 63–90; RESP 16–20; TEMP 36.4–37; O2SAT 95–98
[2018-12-05] MEDS: hydrOXYzine pamoate 25 MG CAPSULE PO ×2 (00:40→20:20)
[2018-12-05] MEDS: SODIUM CHLORIDE 0.9% FLUSH 10 ML IV ×3 (00:40→22:39)
[2018-12-05] MEDS: HYDROCODONE/ACET 5/325 TABLET 2 TAB PO ×4 (00:41→20:20)
--- NOTE | 2018-12-05 06:54 | PC.NURSE ---
Pt reports pain at mid back of 5/10 at rest and 7/10 with activity, transfer to BSC. Admit [place] per order q4hrs. CMS intact. Coversite dressing x2 to mid back intact with no drainage. Denies nausea, passing gas. Hx brain surgery in 2002, right side face droop and hearing loss. Pt needs reinforcement as to what to expect post op and home care mobility. Left hand PIV flushes, no blood return. Foot SCDs on
--- NOTE | 2018-12-05 09:25 | PT.IPTN ---
Current Diagnoses Spondylolisthesis, lumbar region (12/03/18) Other spondylosis with radiculopathy, lumbosacral region (12/03/18) Spinal stenosis, lumbar region with neurogenic claudication (12/03/18) Arthrodesis status (12/03/18) Surgery Performed Operation Date: 12/03/18 12:15 Actual Procedures p L5-S1 hemilaminectomy, L4-5 TLIF w/ posterior instrumentaion - Liana Caballero MD Physical Therapy Treatment Note M2 PT-IP Current Condition Start: 12/04/18 13:20 Freq: NEEDED Status: Active Protocol: Document 12/04/18 10:55 AB (Rec: 12/04/18 13:40 AB [id number]) Physical Therapy Current Condition Current Condition Evaluation Date 12/04/18 Treatment Diagnosis s/p L4-5 fusion/lami, L5S1 hemilami; difficulty in walking Onset Date 12/03/18 Precautions Lumbar Precautions Log Roll,No Twisting,Limit Bending,Lifting Restriction of 10 lbs,Gait Belt above Incisional Area M3 PT-IP Subjective Start: 12/04/18 13:20 Freq: NEEDED Status: Active Protocol: Document 12/05/18 09:25 GGD (Rec: 12/05/18 11:51 GGD [id number]) Subjective Physical Therapy Visit Type Type Treatment Note Visit Start Time 09:00 Visit Stop Time 09:25 Total Visit Minutes 25 Number of LITHOGRAPHIC RETOUCHER APPRENTICE Visits 2 Physical Therapy Visit Comments Patient Comments Pt states she having pain and not sure she can take care of herself at home. Therapy Pain Assessment Pain When Pain Assessed At Rest Pain Present Pain Present Pain Reported Location back Intensity 7 Scale Used Numeric (1 - 10) M4 PT-IP Mobility and Gait Start: 12/04/18 13:20 Freq: NEEDED Status: Active Protocol: Document 12/05/18 09:25 GGD (Rec: 12/05/18 11:51 GGD [id number]) PT-Transfer Assessment Sit to and From Stand Sit to and from Stand Contact Guard Assistance,1 Person Assistance,Use of Upper Extremities Equipment Transfer Assistive Device Gait Belt,4 Wheeled Walker Orthotic/Prosthetic Devices or Brace: No Transfers Transfer Destination Chair,Toilet Transfer Ability Level of Assist Minimal Assistance,1 Person Assistance,Use of Upper Extremities Gait Assessment Gait Gait Assistance Required: Standby Assistance,Contact Guard Assist,1 Person Assist Distance (Feet) 100 Able to Maintain Weight Bearing Status Yes During Gait Assistive Devices Assistive Device Gait Belt,Front Wheeled Walker Orthotic/Prosthetic Devices or Brace: No Gait Deviations General Gait Pattern Antalgic,Decreased Stride Length,Decreased Feet Clearance,Step-to Gait Factors Limiting Gait Function Factors Limiting Gait Function Decreased Activity Tolerance, Decreased Sensation,Decreased Strength,Limited Range of Motion,Pain,Poor Balance,Poor Safety Awareness Comments Gait Comments Pt in Chair with all needs and alarm on. RN and MD informed of pt c/o calf pain. M5 PT-IP Objective Assessments Start: 12/04/18 13:20 Freq: NEEDED Status: Active Protocol: Document 12/04/18 10:55 AB (Rec: 12/04/18 13:40 AB [id number]) Orientation Orientation/Cognition Level of Alertness Alert Orientation Name,Age,Place,Situation Language Function Ability Hard of Hearing Safety Awareness Decreased Safety Awareness Gross Range of Motion Lower Extremity ROM Assessment Within Functional Limits Strength Lower Extremity Strength Assessment Bilaterally Impaired Hip 3+/5 Knee 3+/5 Coordination Assessment Gross Coordination Gross Coordination WNL Sensation Assessment Sensation Gross Sensation Right LE Impaired,Left LE Impaired Light Touch Impaired Proprioception (Position) Impaired Sensation Description Numbness Comments Sensation Comments RLE stated ~ 75% sensation LLE ~ 85% sensation Muscle Tone Muscle Tone WNL Yes M6 PT-IP Treatment Start: 12/04/18 13:20 Freq: NEEDED Status: Active Protocol: Document 12/05/18 09:25 GGD (Rec: 12/05/18 11:51 GGD [id number]) Physical Therapy Treatment Education Education Provided Precautions,Safety M7 PT-IP Assessment and Plan Start: 12/04/18 13:20 Freq: NEEDED Status: Active Protocol: Document 12/05/18 09:25 GGD (Rec: 12/05/18 11:51 GGD [id number]) PT Summary Assessment and Plan Summary Assessment Summary Pt had increase in C/O pain and decrease tolerance to mobility. Pt wasn't able to ambulate as far. She did need increase in time for mobility and cues. Pt would benefit from SNF rehab to improve functional mobility and living alone. Frequency of Treatment Frequency Of Treatment Twice a Day Recommendations To Nursing Amount of Assist Needed 1 Person Assist Discharge Recommendations PT Discharge Recommendations Home with Assistance,SNF Rehab
[2018-12-05] MEDS: buPROPion 75 MG TABLET PO ×2 (10:05→20:20)
[2018-12-05] MEDS: DOCUSATE 100 MG CAPSULE PO ×2 (10:05→20:20)
[2018-12-05] MEDS: LISINOPRIL 10 MG TABLET PO (10:06)
[2018-12-05] MEDS: hydroCHLOROthiazide 12.5 MG CAPSULE PO (10:06)
[2018-12-05] MEDS: PANTOPRAZOLE 40 MG TABLET PO ×2 (10:09→20:20)
--- NOTE | 2018-12-05 10:20 | P.PN_ITS ---
Subjective Subjective Date Patient Seen: 12/05/18 Time Patient Seen: 10:20 Interval history: POD 2 s/p TLIF with Dr. Caballero. Patient's pain has been well controlled with [place] and Vistaril. Her left calf is very tender today. No history of blood clots. Denies chest pain or shortness of breath. She does live alone and has had previous neurological issues that makes her at an increased risk of falling. She would like to discuss with care management about senior care facility versus home health services. Exam Vital Signs (past 8 hours): - 12/05/18 03:16 12/05/18 08:00 Temperature 97.6 F 97.9 F Pulse Rate 77 65 Respiratory Rate 16 17 Blood Pressure 127/64 114/63 Pulse Oximetry 98 96 Oxygen Delivery Method Room Air Oxygen Flow Rate 0 Narrative Exam Narrative: Patient is sitting in bedside chair in no acute distress. Patient is alert and oriented x3. Calves are soft, compressible, and tender on the left. She is able to actively dorsiflex plantar flex. Pulses are symmetrical. Objective Labs Result Diagrams: 12/04/18 06:05 Assessment & Plan Post-op Assessment and plan (1) S/P lumbar fusion: Postoperative Procedures: Procedures Operation Date: 12/03/18 12:15 Actual Procedures Side Surgeon p L5-S1 hemilaminectomy, L4-5 TLIF w/ posterior instrumentaion Liana Caballero MD Will get Doppler ultrasound of left leg today. Continue to mobilize with physical therapy today. No excessive bending, lifting, or twisting. Patient has had some increased pain throughout the day will order Dilaudid for severe breakthrough pain. Patient has been very slow to mobilize and may need senior care facility versus home health services possible discharge tomorrow.
--- NOTE | 2018-12-05 10:33 | OT.IP.TRT ---
Current Diagnoses Spondylolisthesis, lumbar region (12/03/18) Other spondylosis with radiculopathy, lumbosacral region (12/03/18) Spinal stenosis, lumbar region with neurogenic claudication (12/03/18) Arthrodesis status (12/03/18) Surgery Performed Operation Date: 12/03/18 12:15 Actual Procedures p L5-S1 hemilaminectomy, L4-5 TLIF w/ posterior instrumentaion - Liana Caballero MD Occupational Therapy Treatment Note M2 OT-IP Current Condition Start: 12/04/18 13:13 Freq: Status: Active Protocol: Document 12/04/18 13:48 PJM (Rec: 12/04/18 14:17 PJM [id number]) Occupational Therapy Current Condition Current Condition Evaluation Date 12/04/18 Treatment Diagnosis decreased self care, mobility s/p L5-S-1 TLIF Post Operative Precautions Lumbar Precautions Log Roll,No Twisting,Limit Bending,Lifting Restriction of 10 lbs,Gait Belt above Incisional Area M3 OT- IP Subjective and Pain Start: 12/04/18 13:13 Freq: Status: Active Protocol: Document 12/05/18 10:29 CCC (Rec: 12/05/18 10:32 CCC [id number]) OT- Subjective Occupational Therapy Visit Type Type Patient Unavailable Notes LINUX DEVELOPER noted left calf soreness and PA noted to have doppler ultrasound completed today, therefore hold OT treatment at this time.
--- NOTE | 2018-12-05 13:17 | DI.US.S_ITS ---
PROCEDURE: US PERIPH VENOUS LOW EXTREM LT INDICATIONS: LLE PAIN AND TENDERNESS TECHNIQUE: Real-time imaging, as well as color and pulse Doppler interrogation, were performed of the lower extremity deep veins from the inguinal ligament to the popliteal fossa. COMPARISON: None. FINDINGS: The common femoral, femoral and popliteal veins are normally compressible, and free of intraluminal thrombus. Color and pulse Doppler demonstrate normal phasic intraluminal flow. There is normal augmentation response to distal compression maneuver. IMPRESSION: Negative left lower extremity duplex ultrasound for DVT. Dictated by: Robbie Buitrago M.D. on 12/05/2018 at 15:26 Approved by: Robbie Buitrago M.D. on 12/05/2018 at 15:26
--- NOTE | 2018-12-05 15:57 | PT.IPTN ---
Current Diagnoses Spondylolisthesis, lumbar region (12/03/18) Other spondylosis with radiculopathy, lumbosacral region (12/03/18) Spinal stenosis, lumbar region with neurogenic claudication (12/03/18) Arthrodesis status (12/03/18) Surgery Performed Operation Date: 12/03/18 12:15 Actual Procedures p L5-S1 hemilaminectomy, L4-5 TLIF w/ posterior instrumentaion - Liana Caballero MD Physical Therapy Treatment Note M2 PT-IP Current Condition Start: 12/04/18 13:20 Freq: NEEDED Status: Active Protocol: Document 12/04/18 10:55 AB (Rec: 12/04/18 13:40 AB [id number]) Physical Therapy Current Condition Current Condition Evaluation Date 12/04/18 Treatment Diagnosis s/p L4-5 fusion/lami, L5S1 hemilami; difficulty in walking Onset Date 12/03/18 Precautions Lumbar Precautions Log Roll,No Twisting,Limit Bending,Lifting Restriction of 10 lbs,Gait Belt above Incisional Area M3 PT-IP Subjective Start: 12/04/18 13:20 Freq: NEEDED Status: Active Protocol: Document 12/05/18 15:52 GGD (Rec: 12/05/18 15:57 GGD [id number]) Subjective Physical Therapy Visit Type Type Treatment Note Visit Start Time 15:30 Visit Stop Time 15:50 Total Visit Minutes 20 Number of MUSIC HISTORIAN Visits 3 Physical Therapy Visit Comments Patient Comments Pt states she needs to use the bathroom. Therapy Pain Assessment Pain When Pain Assessed At Rest Pain Present Pain Present Pain Reported M4 PT-IP Mobility and Gait Start: 12/04/18 13:20 Freq: NEEDED Status: Active Protocol: Document 12/05/18 15:52 GGD (Rec: 12/05/18 15:57 GGD [id number]) PT-Bed Mobility Assessment Rolling Type of Rolling Log Rolling,Roll to Left Level of Assist Contact Guard Assistance Supine to Sit Supine to Sit Contact Guard Assistance,1 Person Assistance Sit to Supine Sit to Supine Minimal Assistance,1 Person Assistance Scooting Scooting to Edge of Bed Contact Guard Assistance PT-Transfer Assessment Sit to and From Stand Sit to and from Stand Contact Guard Assistance,1 Person Assistance,Use of Upper Extremities Equipment Transfer Assistive Device Gait Belt,Front Wheeled Walker Orthotic/Prosthetic Devices or Brace: No Transfers Transfer Destination Bed,Toilet Transfer Ability Level of Assist Minimal Assistance,1 Person Assistance,Use of Upper Extremities Gait Assessment Gait Gait Assistance Required: Standby Assistance,Contact Guard Assist,1 Person Assist Distance (Feet) 25 Able to Maintain Weight Bearing Status Yes During Gait Assistive Devices Assistive Device Gait Belt,Front Wheeled Walker Orthotic/Prosthetic Devices or Brace: No Gait Deviations General Gait Pattern Antalgic,Decreased Stride Length,Decreased Feet Clearance,Step-to Gait Factors Limiting Gait Function Factors Limiting Gait Function Decreased Activity Tolerance, Decreased Sensation,Decreased Strength,Limited Range of Motion,Pain,Poor Balance,Poor Safety Awareness Comments Gait Comments Pt in bed with all needs and alarm on. M5 PT-IP Objective Assessments Start: 12/04/18 13:20 Freq: NEEDED Status: Active Protocol: Document 12/04/18 10:55 AB (Rec: 12/04/18 13:40 AB [id number]) Orientation Orientation/Cognition Level of Alertness Alert Orientation Name,Age,Place,Situation Language Function Ability Hard of Hearing Safety Awareness Decreased Safety Awareness Gross Range of Motion Lower Extremity ROM Assessment Within Functional Limits Strength Lower Extremity Strength Assessment Bilaterally Impaired Hip 3+/5 Knee 3+/5 Coordination Assessment Gross Coordination Gross Coordination WNL Sensation Assessment Sensation Gross Sensation Right LE Impaired,Left LE Impaired Light Touch Impaired Proprioception (Position) Impaired Sensation Description Numbness Comments Sensation Comments RLE stated ~ 75% sensation LLE ~ 85% sensation Muscle Tone Muscle Tone WNL Yes M6 PT-IP Treatment Start: 12/04/18 13:20 Freq: NEEDED Status: Active Protocol: Document 12/05/18 09:25 GGD (Rec: 12/05/18 11:51 GGD [id number]) Physical Therapy Treatment Education Education Provided Precautions,Safety M7 PT-IP Assessment and Plan Start: 12/04/18 13:20 Freq: NEEDED Status: Active Protocol: Document 12/05/18 15:52 GGD (Rec: 12/05/18 15:57 GGD [id number]) PT Summary Assessment and Plan Summary Assessment Summary Pt progressing slowly. She needs min a with bed mobility. She is slow moving with all mobility. She need cues to keep UE on FWW. Frequency of Treatment Frequency Of Treatment Twice a Day Recommendations To Nursing Amount of Assist Needed 1 Person Assist Discharge Recommendations PT Discharge Recommendations Home with Assistance,SNF Rehab
--- NOTE | 2018-12-05 16:09 | CM.DPNOTE ---
Addendum entered by ANGEOL Ruiz 12/05/18 16:18: PASRR completed. Original Note: DCP Cont: Met w/pt this afternoon, reviewed DCP. Pt was hopeful she could return home but explains she doesn't think this is a safe plan. Therapy team recommending SNF. Pt asks this EDUCATIONAL/DEVELOPMENT ASSISTANT to try [facility] near her home in [place]. Placed call to [facility] P# [phone] and spoke w/ Masood. Faxed SNF referral packet F#[phone], pt is ready for DC to SNF Saturday. Awaiting review and CB today re: bed availability/acceptance at [facility]. Pt did not have b/u choice, will discuss w/pt further if needed. P: DC to SNF expected Saturday, transportation? ANGELO Ruiz
[2018-12-05] MEDS: ACETAMINOPHEN 325 MG TABLET 650 MG PO (16:57)
[2018-12-05] MEDS: HYDROMORPHONE 2 MG TABLET PO (16:58)
--- NOTE | 2018-12-05 18:31 | PC.NURSE ---
Pt friend and transportation Mattie Trinh called for dc status. Explained about SNF placement, labs, PT and order needs and to check back tomorrow. She has to work tomorrow in the early afternoon, and might prefer a Saturday discharge.
[2018-12-05] MEDS: SENNOSIDES 8.6 MG TABLET 17.2 MG PO (20:20)
[2018-12-06] MEDS: HYDROCODONE/ACET 5/325 TABLET 2 TAB PO ×3 (01:05→14:06)
[2018-12-06] MEDS: hydrOXYzine pamoate 25 MG CAPSULE PO ×2 (01:05→14:06)
[2018-12-06] MEDS: SODIUM CHLORIDE 0.9% FLUSH 10 ML IV (01:09)
[2018-12-06 04:53] VITALS: BP 128/56; PULSE 79; RESP 16; TEMP 36.6; O2SAT 96
--- NOTE | 2018-12-06 05:55 | PC.NURSE ---
Addendum entered by Polina Gupta R.N. 12/06/18 06:47: Dr Beavers with telephone read back order, OK for no IV when inpatient at this time. Addendum entered by Polina Gupta R.N. 12/06/18 06:41: Second call to Dr. Beavers regarding DC PIV order. Await return call. Original Note: Pt left hand PIV occluded, tender. Discontinued. Discussed with pt need to replace IV. Pt stated, I don't need one, I'm going home today. Will call provider to request NO IV order. Pt refused SCDs overnight, education provided regarding risk of DVT. Plan to dc via private ride with friend to facility in [place].
[2018-12-06 07:30] VITALS: BP 118/67; PULSE 77; RESP 14; TEMP 35.7; O2SAT 97
[2018-12-06] MEDS: buPROPion 75 MG TABLET PO (08:18)
[2018-12-06] MEDS: PANTOPRAZOLE 40 MG TABLET PO (08:18)
[2018-12-06] MEDS: LISINOPRIL 10 MG TABLET PO (08:18)
[2018-12-06] MEDS: DOCUSATE 100 MG CAPSULE PO (08:18)
[2018-12-06] MEDS: hydroCHLOROthiazide 12.5 MG CAPSULE PO (08:18)
--- NOTE | 2018-12-06 08:51 | P.DS_ITS ---
History of Present Illness History of Present Illness Date Patient Seen: 12/06/18 Time Patient Seen: 08:51 Chief complaint: [id number] Narrative: Pain moderate. Denies fever chills. No nausea vomiting. Patient [facility] and has limited assistance and no transportation. Otherwise without complaints. Discharge Providers Provider Date of admission: 12/03/18 07:31 Discharge Date: 12/06/18 Primary care physician: Gold Hurst MD Consults: 11/20/18 12:25 Consult to Anesthesiology Routine Comment: Consulting Provider: Anesthesiologist Reason for consultation: Surgeon requested re: Cardiac 12/03/18 08:27 Consult to Respiratory Therapy Evaluate & Treat Comment: Physician Instructions: Evaluate and treat 12/03/18 14:54 Consult to Occupational Therapy Evaluate & Treat Comment: Physician Instructions: Evaluate and treat Consult to Physical Therapy Evaluate & Treat Comment: Physician Instructions: Evaluate and Treat Discharge provider: Scott Mars PA-C Summary Hospital Course Discharge Diagnosis: Pre-op diagnosis: 1. L4-5 spondylolisthesis 2. L4-5 spinal stenosis 3. L5-S1 spinal stenosis Hospital Course: [place] [address] Operative Note Patient: Ailyn Oakley [facility]#: [id number] : [id number]:[id number] Age/Sex: 78 / F Date of Service: 12/03/18 Provider: Liana Caballero MD Operative Date/Time/Diagnoses Date of procedure: 12/03/18 Time of procedure: 09:32 Pre-op diagnosis: 1. L4-5 spondylolisthesis 2. L4-5 spinal stenosis 3. L5-S1 spinal stenosis Post-op diagnosis: same Procedure & Clinicians Procedure: 1. L4-5 Postero-lateral and posterior interbody fusion 2. L4-5 interbody cage placement. 3. L4-5 decompressive laminectomy with bilateral facetecomies 4. L4-5 Posterior non-segmental instrumentation 5. L5-S1 hemilaminnectomy 6. [place] of bone marrow from iliac crest 7. Utilization of microsurgical technique and operating microscope Same procedure as scheduled: Yes Indications: Patient has been having chronic back pain and worsening lumbar radiculopathy. Patient failed multiple conservative management with worsening pain weakness and numbness in her lower extremity. Patient has been having difficulty performing activity of daily living. After discussing risks benefits of treatment options, patient elected proceed with surgery. Surgeon: Liana Caballero Professional Bondsman: Colleen Degroot Click Yes if Unassisted: No Anesthesia Type: General Operative Notes Closure Type: primary Specimen(s): none sent Prosthetic devices, grafts, tissues, transplants, or devices: GLobus revolve, Rise cages Applied: catheter Estimated Blood Loss (mL): 50 Blood products transfused: none Patient admitted to the hospital for the above-mentioned procedure. Patient taken to the operating room underwent lumbar surgery. Patient back in her room recovering well and is in stable condition. Patient has worked with physical therapy and has had decreased activity tolerance as well as decreased strength bilateral lower extremities. Patient limited in range of motion and is having some difficulty with balance. Physical therapy is recommended home with assistance and or pen[facility] facility. Patient will be discharged home in stable condition with home health PT. Exam Vital Signs (past 8 hours): - 12/06/18 04:53 Temperature 97.9 F Pulse Rate 79 Respiratory Rate 16 Blood Pressure 128/56 L Pulse Oximetry 96 Oxygen Delivery Method Room Air Oxygen Flow Rate 0 Narrative Exam Narrative: Pleasant 78-year-old female resting comfortably in bedside chair and no apparent distress. Both legs are warm and dry. Motor functions intact distal bilateral lower extremities. Sensation grossly intact to light touch. Lumbar dressing is clean, dry and intact. Objective Labs Result Diagrams: 12/04/18 06:05 Discharge Plan Discharge Plan Patient Disposition: Home Health Service Transfer to: Home Health, Other Discharge comment: Discharge home with home health PT Discharge Med Rec/Prescriptions Prescriptions: New hydrocodone-acetaminophen 5-325 mg Tablet 2 tab PO Q4HR PRN (Reason: Pain, Severe (7-10)) Qty: 60 RF: 0 hydroxyzine pamoate 25 mg Capsule 25 mg PO Q4HR PRN (Reason: Nausea And Vomiting) Qty: 30 RF: 0 Continued bupropion HCl 75 mg Tablet 75 mg PO BID RF: 0 gabapentin 300 mg Capsule 300 mg PO SEEINSTR RF: 0 lisinopril-hydrochlorothiazide 10-12.5 mg Tablet 1 tab PO DAILY RF: 0 fluticasone propionate 50 mcg/actuation [place],Suspension 1 spray INTRANASAL DAILY RF: 0 pantoprazole [Protonix] 40 mg Tablet,Delayed Release (Dr/Ec) 40 mg PO BID RF: 0 Discontinued meloxicam 7.5 mg Tablet 7.5 mg PO QPM PRN (Reason: Arthritis pain) RF: 0 Follow up/Referrals: Gold Hurst MD [Primary Care Provider] - Provider Discharge Instructions Diet: Diet as Tolerated Activity: Limit bending, twisting, lifting Cold/Heat Therapy: Apply ice to the low back as needed Skin/Wound/Dressing Care Report to your healthcare provider any signs of infection, such as:: chills, fever, increased pain, unusual drainage and unusual redness Dressing: Keep dressing clean and dry Discharge Data Primary Care Provider: Gold Hurst
--- NOTE | 2018-12-06 09:10 | PT.IPTN ---
Current Diagnoses Spondylolisthesis, lumbar region (12/03/18) Other spondylosis with radiculopathy, lumbosacral region (12/03/18) Spinal stenosis, lumbar region with neurogenic claudication (12/03/18) Arthrodesis status (12/03/18) Surgery Performed Operation Date: 12/03/18 12:15 Actual Procedures p L5-S1 hemilaminectomy, L4-5 TLIF w/ posterior instrumentaion - Liana Caballero MD Physical Therapy Treatment Note M2 PT-IP Current Condition Start: 12/04/18 13:20 Freq: NEEDED Status: Active Protocol: Document 12/04/18 10:55 AB (Rec: 12/04/18 13:40 AB [id number]) Physical Therapy Current Condition Current Condition Evaluation Date 12/04/18 Treatment Diagnosis s/p L4-5 fusion/lami, L5S1 hemilami; difficulty in walking Onset Date 12/03/18 Precautions Lumbar Precautions Log Roll,No Twisting,Limit Bending,Lifting Restriction of 10 lbs,Gait Belt above Incisional Area M3 PT-IP Subjective Start: 12/04/18 13:20 Freq: NEEDED Status: Active Protocol: Document 12/06/18 09:10 GGD (Rec: 12/06/18 13:03 GGD [id number]) Subjective Physical Therapy Visit Type Type Treatment Note Visit Start Time 08:43 Visit Stop Time 09:07 Total Visit Minutes 24 Number of CHILD SUPPORT AGENT Visits 4 Physical Therapy Visit Comments Patient Comments Pt states she doing better today. Therapy Pain Assessment Pain When Pain Assessed At Rest Pain Present Pain Present Pain Reported M4 PT-IP Mobility and Gait Start: 12/04/18 13:20 Freq: NEEDED Status: Active Protocol: Document 12/06/18 09:10 GGD (Rec: 12/06/18 13:03 GGD [id number]) PT-Bed Mobility Assessment Rolling Type of Rolling Log Rolling,Roll to Left Level of Assist Standby Assistance Supine to Sit Supine to Sit Standby Assistance,1 Person Assistance Sit to Supine Sit to Supine Standby Assistance,1 Person Assistance Scooting Scooting to Edge of Bed Standby Assistance PT-Transfer Assessment Sit to and From Stand Sit to and from Stand Standby Assistance,1 Person Assistance,Use of Upper Extremities Equipment Transfer Assistive Device Gait Belt,4 Wheeled Walker Orthotic/Prosthetic Devices or Brace: No Transfers Transfer Destination Bed,Chair,Toilet Transfer Ability Level of Assist Contact Guard Assistance,1 Person Assistance,Use of Upper Extremities Gait Assessment Gait Gait Assistance Required: Standby Assistance,Contact Guard Assist,1 Person Assist Distance (Feet) 420 Able to Maintain Weight Bearing Status Yes During Gait Assistive Devices Assistive Device Gait Belt,4 Wheeled Walker Orthotic/Prosthetic Devices or Brace: No Gait Deviations General Gait Pattern Antalgic,Decreased Stride Length,Decreased Feet Clearance,Step-to Gait Factors Limiting Gait Function Factors Limiting Gait Function Decreased Activity Tolerance, Decreased Sensation,Decreased Strength,Limited Range of Motion,Pain,Poor Balance,Poor Safety Awareness M5 PT-IP Objective Assessments Start: 12/04/18 13:20 Freq: NEEDED Status: Active Protocol: Document 12/04/18 10:55 AB (Rec: 12/04/18 13:40 AB [id number]) Orientation Orientation/Cognition Level of Alertness Alert Orientation Name,Age,Place,Situation Language Function Ability Hard of Hearing Safety Awareness Decreased Safety Awareness Gross Range of Motion Lower Extremity ROM Assessment Within Functional Limits Strength Lower Extremity Strength Assessment Bilaterally Impaired Hip 3+/5 Knee 3+/5 Coordination Assessment Gross Coordination Gross Coordination WNL Sensation Assessment Sensation Gross Sensation Right LE Impaired,Left LE Impaired Light Touch Impaired Proprioception (Position) Impaired Sensation Description Numbness Comments Sensation Comments RLE stated ~ 75% sensation LLE ~ 85% sensation Muscle Tone Muscle Tone WNL Yes M6 PT-IP Treatment Start: 12/04/18 13:20 Freq: NEEDED Status: Active Protocol: Document 12/06/18 09:10 GGD (Rec: 12/06/18 13:03 GGD [id number]) Physical Therapy Treatment Education Education Provided Precautions,Safety M7 PT-IP Assessment and Plan Start: 12/04/18 13:20 Freq: NEEDED Status: Active Protocol: Document 12/06/18 09:10 GGD (Rec: 12/06/18 13:03 GGD [id number]) PT Summary Assessment and Plan Summary Assessment Summary Pt improving with mobility. She was SBA for bed mobility. She was safe with gait with 4WW. She safe for home D/C when medically stable. Frequency of Treatment Frequency Of Treatment Twice a Day Recommendations To Nursing Amount of Assist Needed 1 Person Assist Discharge Recommendations PT Discharge Recommendations Home with Assistance
--- NOTE | 2018-12-06 10:48 | PM.DS.1 ---
History of Present Illness History of Present Illness Chief complaint: [id number] Narrative: Pain moderate. Denies fever chills. No nausea vomiting. Patient lives in [facility]. Otherwise without complaints. Discharge Providers Provider Date of admission: 12/03/18 07:31 Discharge Date: 12/06/18 Primary care physician: Gold Hurst MD Consults: 11/20/18 12:25 Consult to Anesthesiology Routine Comment: Consulting Provider: Anesthesiologist Reason for consultation: Surgeon requested re: Cardiac 12/03/18 08:27 Consult to Respiratory Therapy Evaluate & Treat Comment: Physician Instructions: Evaluate and treat 12/03/18 14:54 Consult to Occupational Therapy Evaluate & Treat Comment: Physician Instructions: Evaluate and treat Consult to Physical Therapy Evaluate & Treat Comment: Physician Instructions: Evaluate and Treat Discharge provider: Scott Mars PA-C Exam Vital Signs (past 8 hours): - 12/06/18 04:53 12/06/18 07:30 Temperature 97.9 F 96.3 F L Pulse Rate 79 77 Respiratory Rate 16 14 Blood Pressure 128/56 L 118/67 Pulse Oximetry 96 97 Oxygen Delivery Method Room Air Oxygen Flow Rate 0 Objective Labs Result Diagrams: 12/04/18 06:05 Discharge Plan Discharge Plan Patient Disposition: Home Discharge comment: Discharge home Discharge Med Rec/Prescriptions Prescriptions: New hydrocodone-acetaminophen 5-325 mg Tablet 2 tab PO Q4HR PRN (Reason: Pain, Severe (7-10)) Qty: 60 RF: 0 hydroxyzine pamoate 25 mg Capsule 25 mg PO Q4HR PRN (Reason: Nausea And Vomiting) Qty: 30 RF: 0 Continued bupropion HCl 75 mg Tablet 75 mg PO BID RF: 0 gabapentin 300 mg Capsule 300 mg PO SEEINSTR RF: 0 lisinopril-hydrochlorothiazide 10-12.5 mg Tablet 1 tab PO DAILY RF: 0 fluticasone propionate 50 mcg/actuation [place],Suspension 1 spray INTRANASAL DAILY RF: 0 pantoprazole [Protonix] 40 mg Tablet,Delayed Release (Dr/Ec) 40 mg PO BID RF: 0 Discontinued meloxicam 7.5 mg Tablet 7.5 mg PO QPM PRN (Reason: Arthritis pain) RF: 0 Follow up/Referrals: Gold Hurst MD [Primary Care Provider] - Provider Discharge Instructions Diet: Diet as Tolerated Activity: Limit bending, twisting, lifting Cold/Heat Therapy: Apply ice to the low back as needed Skin/Wound/Dressing Care Report to your healthcare provider any signs of infection, such as:: chills, fever, increased pain, unusual drainage and unusual redness Dressing: Keep dressing clean and dry Visit Report/Discharge Packet Instructions: DI for Transforaminal Lumbar Interbody Fusion Visit Report Forms: Stroke Signs & Symptoms Discharge Data Primary Care Provider: Gold Hurst Discharges patient from system. Discharge Date/Time: 12/06/18 14:30
--- NOTE | 2018-12-06 10:51 | CM.DPNOTE ---
DCP/continued: Received notification during AM rounds that patient has improved enough physically to return home at time of d/c. Spoke with Ortho/team Sam Marcum, he confirms that patient medically stable for d/c home today. Currently no HH recommended by therapy or Ortho team. Met with patient to confirm above plan. Patient aware and agreeable to d/c home today. Patient reports that she has a friend/Mattie that will be picking her up. Patient has appointment made with outpatient orthopedic f/u in a few weeks. No additional needs identified. Patient signed RUBIO this AM. P: Home today. ANGELO Bhatt
--- NOTE | 2018-12-06 14:18 | OT.IP.TRT ---
Current Diagnoses Spondylolisthesis, lumbar region (12/03/18) Other spondylosis with radiculopathy, lumbosacral region (12/03/18) Spinal stenosis, lumbar region with neurogenic claudication (12/03/18) Arthrodesis status (12/03/18) Surgery Performed Operation Date: 12/03/18 12:15 Actual Procedures p L5-S1 hemilaminectomy, L4-5 TLIF w/ posterior instrumentaion - Liana Caballero MD Occupational Therapy Treatment Note M2 OT-IP Current Condition Start: 12/04/18 13:13 Freq: Status: Active Protocol: Document 12/04/18 13:48 PJM (Rec: 12/04/18 14:17 PJM [id number]) Occupational Therapy Current Condition Current Condition Evaluation Date 12/04/18 Treatment Diagnosis decreased self care, mobility s/p L5-S-1 TLIF Post Operative Precautions Lumbar Precautions Log Roll,No Twisting,Limit Bending,Lifting Restriction of 10 lbs,Gait Belt above Incisional Area M3 OT- IP Subjective and Pain Start: 12/04/18 13:13 Freq: Status: Active Protocol: Document 12/06/18 14:05 CGR (Rec: 12/06/18 14:11 CGR [email or web address]) OT- Subjective Occupational Therapy Visit Type Type Progress Note Visit Start Time 10:40 Visit Stop Time 11:07 Total Visit Minutes 27 OT Pain Assessment Pain When Pain Assessed At Rest Pain Present Pain Present Denied Pain M4 OT- IP ADL's Start: 12/04/18 13:13 Freq: Status: Active Protocol: Document 12/06/18 14:05 CGR (Rec: 12/06/18 14:11 CGR [id number]) OT [id number] Comments OT Self-Feeding Comments Not meal time OT ADL-Grooming General Evaluation Grooming Ability Standby Assistance Areas Needing Assistance Retrieving/Set-up of Grooming Items Comments OT Grooming Comments brushed hair seated in chair. OT ADL-Oral Care Comments Oral Care Comments Not performed OT ADL-Dressing General Eval Upper Body Dressing Ability Independent Lower Body Dressing Ability Standby Assistance Areas Needing Assistance Retrieving/Set-up of Clothing, Pull-Over Shirt,Underpants/ Brief,Shoes Assistive Devices Dressing Assistive Devices Manager Transplant Comments OT Dressing Comments Pt donned clean underwear and pants using the neuropsychiatrist. She was able to slip on her whoes without assist. OT ADL-Toileting General Evaluation Toileting Ability Standby Assistance Devices Toileting Assistive Devices Grab Bars OT ADL-Bathing Bathing Type Bathing Type Shower General Evaluation Bathing Ability Standby Assistance Areas Needing Assistance Retrieving/Setting Up Items Devices Bathing Equipment Hand Held Shower Sprayer, Shower Chair with Arms,Grab Bars Comments OT Bathing Comments showered and washed hair seated on BSC in shower. M5 OT- IP IADL's Start: 12/04/18 13:13 Freq: Status: Active Protocol: Document 12/04/18 13:48 PJM (Rec: 12/04/18 14:17 [facility] [id number]) OT-Instrumental Activities of Daily Living Deficits IADL Deficits Identified Deficits Home Safety Awareness Awareness of Need for Assistance at Home Good Awareness Ability to Problem Solve Emergency Able to Problem Solve Situations Medication Management Medication Management No Deficits Identified Money Management Money Management No Deficits Identified Meal Preparation Meal Preparation Comments pt prepared meals ahead of time and friends will also assist with meals per pt Model Maker Fiberglass Model Maker Fiberglass Caregiver Provides Assist Model Maker Fiberglass Comments friends to assist PRN until pt able Driving Driving Caregiver Provides Assist Driving Comments friends to assist until pt able M6 OT- IP Functional Cognition Start: 12/04/18 13:13 Freq: Status: Active Protocol: Document 12/04/18 13:48 PJM (Rec: 12/04/18 14:17 [facility] [id number]) Cognitive Factors Limiting Selfcare Function Cognitive Ability Level of Alertness Alert Patient Orientation Name,Age,Birthday,Month,Date, Year,Day of Week,Place, Situation Attention Span Ability Capable of Focused Attention, Capable of Sustained Attention Ability to Follow Commands Able to Follow One Step Commands Memory Description No Deficits Noted Safety Awareness No Deficits Noted Cognitive Comments Cognitive Assessment Comments Cognition appears WFL. Pt verbalizes 3/3 lumbar precautiosn and asking appropriate questions about adapted ADL techniques. 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 M7 OT- IP Mobility and Balance Start: 12/04/18 13:13 Freq: Status: Active Protocol: Document 12/06/18 14:05 CGR (Rec: 12/06/18 14:11 CGR [email or web address]) OT-Transfer Assessment Sit to and From Stand Sit to and from Stand Standby Assistance Transfers Transfer Ability Standby Assistance Technique Transfer Destination Bedside Commode,Chair,Shower Stall Transfer Technique Stand Step Pivot Devices Transfer Assistive Devices Gait Belt,Front Wheeled Walker OT- Gait Assessment Gait Gait Assistance Required: Standby Assistance Assistive Devices Assistive Device Gait Belt,Front Wheeled Walker Comments Gait Ability Comments mobility aroudn the room OT- Balance Assessment Sitting Balance and Reactions Static Sitting Balance Ability Good Dynamic Sitting Balance Ability Fair M8 OT- IP Objective Assessments Start: 12/04/18 13:13 Freq: Status: Active Protocol: Document 12/04/18 13:48 PJM (Rec: 12/04/18 14:17 PJM [id number]) OT Gross Range of Motion Upper Extremity Range of Motion Assessment Within Functional Limits OT Strength Upper Extremity Strength Assessment Within Functional Limits Hand Hospitality Coordinator Strength Hand Dominance Right OT- Coordination Assessment Comments Coordination Comments BUE WFL OT-Muscle Tone Assessment Muscle Tone WNL Yes OT Sensation Assessment Comments Summary Comments Pt denies deficits in BUE's Edema Edema Absent M9 OT- IP Assessment and Plan Start: 12/04/18 13:13 Freq: Status: Active Protocol: Document 12/06/18 14:05 CGR (Rec: 12/06/18 14:11 CGR [email or web address]) OT Summary Assessment and Plan Potential Rehabilitation Potential Good Analytic Complexity at Evaluation Low Summary OT Impairments Pain,Functional Mobility, Grooming,Dressing,Toileting, Bathing,Toilet Transfers, Shower Transfers Assessment Summary Pt tolerated shower on this date. Pt is significant improvement in mobility and now planned for d/c home. Pt likely safe for discharge home with family support. Pt states she has all necessary equipment. Goals Grooming Goal Independent Dressing Goal Independent,Long Handled Shoe Horn,Manager Transplant,Sock Aid Toileting Goal Independent Bathing Goal Standby Assistance,Grab Bars, Hand Held Shower Sprayer Toilet Transfer Goal Independent Shower Transfer Goal Standby Assistance,Walk-in Shower,Shower Chair,Grab Bars OT-Other Goals Grooming to be done standing at sink with good body mechanics. Days to Meet Goals 2 Frequency of Treatment Frequency Of Treatment Once a Day Treatment Plan OT Treatment Plan ADL Training,Functional Mobility,Patient/Family Education,Discharge Planning Other Treatment Recommendations and Next grooming at sink, LB dressing, Treatment Focus shower prior to d/c Discharge Recommendations OT Discharge Recommendations Home with Assistance Home Equipment Needs none
--- NOTE | 2018-12-06 15:07 | PC.NURSE ---
LS clear, pt denies SOB, denies calf tenderness and nausea; c/m/s to blles present; Drsg changed with 2 covrsite drsg applied with skin prep; wounds wel-approximated, adama; patient education included RX medications, s/sx of infection, f/u appt and fall risks; pt escorted with belongings in hand via wheelchair to private vehicle.
== END 2018-12-06 14:30 | disposition home or self-care (01) | DRG 455 ==
PROVIDERS: Admitting Provider Orthopaedic Surgery Orthopaedic Surgery of the Spine; PCP Orthopaedic Surgery; Visit Provider Orthopaedic Surgery Orthopaedic Surgery of the Spine
PROC: 0SG00AJ Fusion of Lumbar Vertebral Joint with Interbody Fusion Device, Posterior Approach, Anterior Column, Open Approach (ICD-10-PCS; principal; 2018-12-03 12:15)
DX: M48.062 Spinal stenosis, lumbar region with neurogenic claudication (principal); R00.1 Bradycardia, unspecified; M43.16 Spondylolisthesis, lumbar region; M47.27 Other spondylosis with radiculopathy, lumbosacral region; M48.07 Spinal stenosis, lumbosacral region; G47.33 Obstructive sleep apnea (adult) (pediatric); G25.81 Restless legs syndrome; E66.9 Obesity, unspecified; K21.9 Gastro-esophageal reflux disease without esophagitis; F32.9 Major depressive disorder, single episode, unspecified; M54.5 Low back pain; M79.662 Pain in left lower leg; Z87.891 Personal history of nicotine dependence; Z68.35 Body mass index [BMI] 35.0-35.9, adult; Z98.84 Bariatric surgery status
CPT/HCPCS: 36415; 72100; 76000; 85014; 85018; 93971; 97116; 97162; 97165; 97530; 97535; C1776; C9290; J1100; J1170; J2060; J2704; J3010